=== PATIENT | male | born 1985 | race Two or more races ===

== ENCOUNTER 2016-08-21 05:47 | Observation (INO) | payer OTHER ==
[~2016-08-21] VITALS: Ht 167.6 cm; Wt 79.4 kg
[2016-08-21] VITALS (13 sets, daily range): BP systolic 105–130; BP diastolic 56–76
[2016-08-21] MEDS ORDERED: NKM (06:08)
[2016-08-21] MEDS ORDERED: Thrombin 5000 units TOPIC ONE (06:46)
[2016-08-21] MEDS ORDERED: Surgicel 4in x 8in TOPIC ONE (06:46)
[2016-08-21] MEDS ORDERED: Bacitracin 50000 Units Vial ONE (06:47)
[2016-08-21] MEDS ORDERED: Bupivacaine w/Epi 0.5% 30ml Vial INJ ONE (06:47)
[2016-08-21] MEDS ORDERED: Vancomycin 1gm inj IVPB ONE (06:47)
[2016-08-21] MEDS ORDERED: oxyCODONE 5mg IR tab ORAL PRN (07:00)
[2016-08-21] MEDS ORDERED: ceFAZolin sod 1 GM in NS 55 ML IVPB ONE (07:00)
[2016-08-21] MEDS ORDERED: Dexamethasone 20mg/5ml IVP ONE (07:00)
--- NOTE | 2016-08-21 07:14 | Anethesia Preoperative Eval ---
Anesthesia Pre-op PMH/ROS General Date of Evaluation: August 21, 2016 Time of Evaluation: 07:31 Anesthesiologist: Alexandre ASA Score: ASA 1 Mallampati Score Class I : Soft palate, uvula, fauces, pillars visible Class II: Soft palate, uvula, fauces visible Class III: Soft palate, base of uvula visible Class IV: Only hard plate visible Mallampati Classification: Class I Surgeon: Rosamaria Diagnosis: Neck Pain Surgical Procedure: ADR C4-5, ACDF C5-6 Anesthesia History: none Family History: no anesthesia problems Allergies: Coded Allergies: No Known Allergies (Unverified , 08/20/16) Medications: see eMAR Past Medical History PSxH Narrative: R Clavicle, R Foot, R Knee SX Anesthesia Pre-op Phys. Exam Physician Exam Last Vital Signs Date Time Temp Pulse Resp B/P Pulse Ox O2 Delivery O2 Flow Rate FiO2 08/21/16 06:52 98.6 57 18 126/76 99 Room Air Constitutional: NAD Neurologic: CN 2-12 intact Cardiovascular: RRR Respiratory: CTA Gastrointestinal: S/NT/ND Airway Exam Mallampati Score: Class I MO: full ROM: limited Teeth: intact Anesthesia Pre-op A/P Risk Assessment & Plan Assessment: ASA 1 Plan: GA, BIS, Glidescope Status Change Before Surgery: No Pre-Antibiotics Dru Grams Ancef IV Given Within 1 Hr of Incision: Yes Time Given: 07:46 Mendez Schroeder MD August 21, 2016 07:14
[2016-08-21] MEDS ORDERED: Nimbex 2mg/ml Inj 10ML IVP ONE (07:30)
[2016-08-21] MEDS ORDERED: Dexamethasone 4mg/ml vial ONE (07:30)
[2016-08-21] MEDS ORDERED: NS Irrig 1000ml ONE (07:30)
[2016-08-21] MEDS ORDERED: Labetalol 5mg/ml 20ml vial IV ONE (07:30)
[2016-08-21] MEDS ORDERED: LR 1000ml ONE (07:30)
[2016-08-21] MEDS ORDERED: Propofol 10mg/ml 20ml IV ONE (07:30)
[2016-08-21] MEDS ORDERED: fentaNYL 100 mcg/2 mL IV ONE (07:30)
[2016-08-21] MEDS ORDERED: Sterile Water Irrig 1000ml IRRIG ONE (07:30)
[2016-08-21] MEDS ORDERED: Neostigmine 1mg/ml 10ml Inj ONE (07:30)
[2016-08-21] MEDS ORDERED: Lidocaine 1% Plain 30 ml INJ ONE (07:30)
[2016-08-21] MEDS ORDERED: Lidocaine 1% MPF 10mg/ml 5ml ONE (07:30)
[2016-08-21] MEDS ORDERED: Glycopyrrolate 0.2mg/ml 1ml Vial ONE (07:30)
[2016-08-21] MEDS ORDERED: fentaNYL 250mcg/5ml ONE (07:30)
--- NOTE | 2016-08-21 07:37 | Pre-Procedure Note/Attestation ---
Pre-Procedure Note/Attestation Complete Prior to Procedure Planned Procedure: not applicable Procedure Narrative: C4-5, C5-6 ADR possible fusion Indications for Procedure Pre-Operative Diagnosis: Post trauma discogenic neck pain Attestation I attest that I discussed the nature of the procedure; its benefits; risks and complications; and alternatives (and the risks and benefits of such alternatives ), prior to the procedure, with the patient (or the patient's legal sales representative public utilities). I attest that, if there was a reasonable possibility of needing a blood transfusion, the patient (or the patient's legal sales representative public utilities) was given the [facility] standardized written summary, pursuant to the Dmitriy [place] Blood Safety Act ([place] Health and Safety Code # 1645, as amended). I attest that I re-evaluated the patient just prior to the surgery and that there has been no change in the patient's H&P, except as documented below: ROSALIA NAVARRO August 21, 2016 07:37
[2016-08-21] MEDS ORDERED: LR 1000ml 1,000 ML IVLG SCH (08:03)
--- NOTE | 2016-08-21 08:06 | Immediate Post-Op Evaluation ---
Immediate Post-Op Evalulation Immediate Post-Op Evalulation Procedure: ADR C4-5, ADR C5-6 Date of Evaluation: August 21, 2016 Time of Evaluation: 11:15 IV Fluids: 1000 LR Blood Products: 0 Estimated Blood Loss: 25 Urinary Output: 0 Blood Pressure Systolic: 120 Blood Pressure Diastolic: 72 Pulse Rate: 71 Respiratory Rate: 16 O2 Sat by Pulse Oximetry: 100 Temperature (Fahrenheit): 97 Pain Score (1-10): 3 Nausea: No Vomiting: No Complications 0 Patient Status: awake, reacts, patent, extubated, none Hydration Status: adequate Dru Grams Ancef IV Given Within 1 Hr of Incision: Yes Time Given: 07:46 Mendez Schroeder MD August 21, 2016 08:06
--- NOTE | 2016-08-21 08:07 | 48 Hour Post Anesthesia Eval ---
Post Anesthesia Evaluation Procedure: ADR C4-5, ADR C5-6 Date of Evaluation: August 21, 2016 Time of Evaluation: 13:31 Blood Pressure Systolic: 118 0: 72 Pulse Rate: 68 Respiratory Rate: 18 Temperature (Fahrenheit): 98.2 O2 Sat by Pulse Oximetry: 100 Airway: patent Nausea: No Vomiting: No Pain Intensity: 3 Hydration Status: adequate Cardiopulmonary Status: Stable Mental Status/LOC: patient returned to baseline Follow-up Care/Observations: 0 Post-Anesthesia Complications: 0 Follow-up care needed: ready to discharge Mendez Schroeder MD August 21, 2016 08:06
[2016-08-21] MEDS ORDERED: Ketorolac 60mg Inj IV PRN (08:15)
[2016-08-21] MEDS ORDERED: Acetaminophen (Non formulary) 100 ML IV ONE (08:15)
[2016-08-21] MEDS ORDERED: Ketorolac 30mg Inj IV PRN (08:15)
[2016-08-21] MEDS ORDERED: Hydromorphone 0.5mg/0.5ml inj IVP PRN (08:15)
[2016-08-21] MEDS ORDERED: DiphenhydrAMINE 50mg/ml Inj IVP PRN (08:15)
[2016-08-21] MEDS ORDERED: Norco 5mg/325mg tab ORAL PRN (08:15)
[2016-08-21] MEDS ORDERED: Midazolam 2mg/2ml Inj IVP PRN (08:15)
[2016-08-21] MEDS ORDERED: Atropine Inj 1mg/10ml Syr IV PRN (08:15)
[2016-08-21] MEDS ORDERED: Meperidine 25mg/0.5ml Inj IV PRN (08:15)
[2016-08-21] MEDS ORDERED: LORazepam Inj 2mg/ml 1ml IV PRN (08:15)
[2016-08-21] MEDS ORDERED: Oxycodone/Acetaminophen 5-325 ORAL PRN (08:15)
[2016-08-21] MEDS ORDERED: fentaNYL 100 mcg/2 mL IV PRN (08:15)
[2016-08-21] MEDS ORDERED: Norco 7.5mg/325mg tab ORAL PRN (08:15)
[2016-08-21] MEDS ORDERED: Metoclopramide 10mg/2ml Inj IVP PRN (08:15)
[2016-08-21] MEDS ORDERED: Bupivacaine 0.5% Inj 30 ml vial INJ ONE (09:47)
--- NOTE | 2016-08-21 10:49 | Brief Operative Note ---
Immediate Post Operative Note Operative Note Pre-op Diagnosis: Post trauma discogenic neck pain Procedure: ADR C4-5 C5-6 Xray Microscope SSEP Post-op Diagnosis: same as pre-op Findings: consistent w/pre-op dx studies Surgeon: Rosamaria Ph.D., M.D. Director Of Pediatric Rehabilitation: Wilfredo DAVIDSON Anesthesiologist: Alexandre Anesthesia: general Specimen: none Complications: none Condition: stable Estimated Blood Loss: minimal Drains: none Implant(s) used?: Yes ROSALIA NAVARRO August 21, 2016 10:49
--- NOTE | 2016-08-21 11:25 | Diagnostic Imaging Report ---
Indications: Neck pain, cervical arthroplasty Technique: Above procedure including fluoroscopy performed by Dr. Blank. Portable intraoperative lateral spot film images of the cervical spine performed Findings: Comparison: None Initial image demonstrates localizing needle tip overlying the C4-5 disc space. Subsequent images demonstrate placement of prostheses within the C4-5 and C5-6 disc spaces, well centered in the sagittal plane. No AP images obtained. IMPRESSION: C4-5 and C5-6 discoplasty
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
[2016-08-21] MEDS ORDERED: Morphine Sulfate 4mg/ml Inj IM PRN (13:30)
[2016-08-21] MEDS ORDERED: D5 1/2NS 1,000 ML IV SCH (13:30)
[2016-08-21] MEDS ORDERED: Chloraseptic Spray 20mL Bottle ORAL PRN (14:00)
[2016-08-21] MEDS ORDERED: ceFAZolin sod 1 GM in D5W 55 ML IV SCH (16:00)
[2016-08-21] MEDS ORDERED: PERCOCET 10-321 EACH ORAL ×2 (17:19→17:20)
[2016-08-21] MEDS ORDERED: PREDNISONE20 MG ORAL (17:43)
[2016-08-21] MEDS ORDERED: PREDNISONE10 MG ORAL (17:43)
--- NOTE | 2016-08-21 19:45 | Operative Note - Dictated ---
DATE OF OPERATION: 08/21/2016 SURGEON: Aiden Blank, Ph.D., M.D. CAREER AGENT SURGEON: LETY Hannah. ANESTHESIA: Dr. Schroeder, general with intubation. ADMITTING/PREOPERATIVE DIAGNOSIS: Posttraumatic cervical discogenic neck pain and radiculopathy. 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 OPERATIVE PROCEDURES: 1. Anterior cervical artificial disk replacement, C4-C5, C5-C6. 2. Intraoperative fluoroscopy interpreted by surgeon. 3. SSEP monitoring. 4. High-powered microscopic dissection. PROCEDURE: The patient was brought to the operating room, and in the supine position, general anesthesia with intubation was induced. 2 grams of IV Ancef and 10 mg of IV Decadron were administered 30 minutes prior to incision time. The patient was appropriately positioned. Anterior cervical spine was sterilely prepped and draped in the usual sterile fashion. Transverse left incision at the appropriate interval in a skin fold was placed sharply through dermis and epidermis. Electrocautery dissection was carried through the subcutaneous tissue to the level of the platysma muscle, was identified, isolated, and transected in line with the incision. Blunt dissection was carried medial to the sternocleidomastoid muscle and the carotid sheath through the deep cervical and pretracheal fascia to the midline between the right and left longus colli muscles. A spinal needle was bent at 90 degree angles so as to avoid penetration greater than 3 mm at disk space, placed in the midline in the disk space. Cross table radiograph obtained under sterile conditions demonstrating the correct level for the dissection. C4-C5: Diskectomy was performed to the posterior longitudinal ligament. Endplates denuded of cartilage. Posterior longitudinal ligament resected. Artificial disk [employer] appropriately placed with appropriate real cuts after sizing followed with this implantation. Fluoroscopic imaging demonstrated excellent alignment and position. Retractors were placed to the C5-C6 interval. Annulotomy performed. Small anterior osteophytes resected. Denuding of the endplates to the posterior longitudinal ligament to the right and left joint of Luschka without takedown of the ligament. Excision of the posterior longitudinal ligament under high-power magnification. No dural tears or leaks occurred at either level while dissecting. Appropriate sizing undertaken with fluoroscopic guidance. Procedurally accurate implantation technique for the artificial disk replacement, fit excellent. Cross table image undertaken demonstrating excellent alignment and positioning. Wound is irrigated with antibiotic-containing saline. FloSeal applied. 0.5 mg vancomycin powder. Reapproximation of the platysma muscle. Reapproximation of dermis and epidermis with a running subcuticular suture. Transverse surgical strips. Sterile bandage maintained in place with tape. The patient was awakened, extubated in the operating room, and transported to postop recovery in good stable condition. Aiden Blank M.D. DR: Chata JOB#: [id number] CC:
[2016-08-21] MEDS ORDERED: LORazepam 0.5mg tab ORAL SCH (21:00)
== END 2016-08-21 18:35 | disposition home or self-care (01) ==
LOC: SUR 05:47 → 3E 13:14
DX: M50.121 Cervical disc disorder at C4-C5 level with radiculopathy (principal); G89.18 Other acute postprocedural pain; F17.210 Nicotine dependence, cigarettes, uncomplicated
CPT/HCPCS: 22856; 22858; 36415; 72040; 76000; 86850; 86900; 86901; 87081; 97116; 97161; 97530; J0690; J1100; J2001; J2250; J2405; J2704; J2710; J3010; J3370; J7120; 94003; 94150; G0378